=== PATIENT | male | born 1975 | race Caucasian/White ===

== ENCOUNTER 2022-09-26 08:31 | Day surgery (SDC) | payer OTHER ==
[2022-09-23 10:29] VITALS: BMI 26.4
[2022-09-26 10:02] LABS: Hemoglobin 14.7 g/dL (14.0-18.0); Mean Corpuscular HGB CONC 31.6 g/dL (32.0-36.0); Mean Corpuscular Hemoglobin 30.2 pg (27.0-31.0); Mean Corpuscular Volume 95.3 fl (78.0-98.0); Mean Platelet Volume 8.2 fL (7.4-10.4); Platelet Count 241 10x3/uL (130-400); RBC Distribution Width 12.5 % (11.5-14.5); Red Blood Cell (RBC) Count 4.87 mill/uL (4.70-6.10); White Blood Cell (WBC) Count 6.4 10x3/uL (4.8-10.8)
[2022-09-26 10:16] LABS: Anion Gap 14 mmol/L (10-20); BUN (Urea Nitrogen) 17 mg/dL (8.9-20.6); Calc. Creatinine Clearance 88 mL/min (70-130); Calcium 9.2 mg/dL (7.8-10.44); Carbon Dioxide 21 mmol/L (22-29); Chloride 112 mmol/L (98-107); Estimated GFR 70; Glucose 99 mg/dL (70-105); Potassium 5.3 mmol/L (3.5-5.1); Sodium 142 mmol/L (136-145)
[2022-09-26] MEDS ORDERED: CEFAZOLIN 2 GM VIAL ONE (10:44)
[2022-09-26] MEDS ORDERED: Sodium Chloride 0.9% 100 ML ONE (10:44)
[2022-09-26] MEDS ORDERED: Fentanyl 250 MCG/5 ML VIAL ONE (10:54)
[2022-09-26] MEDS ORDERED: Ondansetron PF 4 MG/2 ML Vial ONE (11:03)
[2022-09-26] MEDS ORDERED: Rocuronium Bromide 10 MG/ML (10ML VIAL) ONE (11:03)
[2022-09-26] MEDS ORDERED: PROPOFOL 200 MG/20 ML VIAL ONE (11:03)
[2022-09-26] MEDS ORDERED: ePHEDrine Sulfate 50 MG/10 ML VIAL ONE (11:03)
[2022-09-26] MEDS ORDERED: Ketorolac Tromethamine 30 MG/ML VIAL ONE (11:03)
[2022-09-26] MEDS ORDERED: Lidocaine 1% PF 5 ML VIAL ONE (11:03)
[2022-09-26] MEDS ORDERED: Dexamethasone 20 MG/5 ML VIAL ONE (11:03)
[2022-09-26] MEDS ORDERED: Vancomycin 1 GM VIAL ONE (11:34)
[2022-09-26] MEDS ORDERED: SUGAMMADEX SODIUM 200 MG/2 ML VIAL ONE (12:20)
[2022-09-26] MEDS ORDERED: fentaNYL PF 100 MCG/2 ML SYRINGE ONE ×2 (12:44→13:07)
[2022-09-26] MEDS ORDERED: Morphine 4 MG/ML VIAL ONE (13:27)
[2022-09-26] MEDS ORDERED: fentaNYL 50 mcg/mL 1 mL Vial ONE (13:37)
[2022-09-26] MEDS ORDERED: Morphine 2 MG/ML VIAL ONE (13:45)
[2022-09-26] MEDS ORDERED: HYDROcodone/Acetaminophen 5/325 mg Tablet ONE ×2 (15:27→15:52)
== END 2022-09-26 15:52 | disposition home or self-care (01) ==
LOC: SDC 08:31
PROVIDERS: ATTEND Neurological Surgery
PROC: 01NR0ZZ Release Sacral Nerve, Open Approach (ICD-10-PCS; principal; 2022-09-26)
PROC: 0SG30AJ Fusion of Lumbosacral Joint with Interbody Fusion Device, Posterior Approach, Anterior Column, Open Approach (ICD-10-PCS; principal; 2022-09-26)
DX: M51.37 Other intervertebral disc degeneration, lumbosacral region (principal); M54.16 Radiculopathy, lumbar region; G89.29 Other chronic pain; I10 Essential (primary) hypertension; E78.5 Hyperlipidemia, unspecified; G47.30 Sleep apnea, unspecified; F17.290 Nicotine dependence, other tobacco product, uncomplicated; Z79.899 Other long term (current) drug therapy
CPT/HCPCS: 80048; 85027; 93005; 93010; C1713; C1768; C1776; C1889; J2270; J2272; J3010; J3370; J3490